=== PATIENT | male | born 1980 | race Caucasian/White ===

== ENCOUNTER 2017-07-29 19:37 | Emergency (ER) | payer BC ==
[~2017-07-29] VITALS: Ht 180.3 cm; Wt 95.3 kg
--- NOTE | 2017-07-29 20:27 | NUR ---
Pt states he had the flu last week, and went to the gym sauna to "sweat it out." Experienced syncopal episode on the shower, and suffered a laceration on the rt side of his head.
[2017-07-29] MEDS ORDERED: IV NORMAL SALINE 1000 ML BAG IV ONE (21:00)
[2017-07-29 21:16] LABS: BASOPHILS # (AUTO) 0.1 K/uL (0.0-8.0); BASOPHILS % (AUTO) 0.7 % (0.0-2.0); EOSINOPHILS # (AUTO) 0.3 K/uL (0.0-0.7); EOSINOPHILS % (AUTO) 2.6 % (0.0-7.0); HEMOGLOBIN 15.5 g/dL (12.5-16.3); LYMPHOCYTES # (AUTO) 2.1 K/uL (20.0-40.0); LYMPHOCYTES % (AUTO) 20.3 % (20.5-51.5); MEAN CORPUSCULAR HEMOGLOBIN 31.8 uug (23.8-33.4); MEAN CORPUSCULAR HGB CONC 34 g/dL (32.5-36.3); MEAN CORPUSCULAR VOLUME 92.4 fL (73.0-96.2); MONOCYTES # (AUTO) 0.8 K/uL (2.0-10.0); NEUTROPHILS # (AUTO) 7.1 K/uL (1.8-8.9); NEUTROPHILS % (AUTO) 68.4 % (38.5-71.5); PLATELET COUNT (AUTO) 176 K/uL (152-348); RED BLOOD CELL COUNT(AUTO) 4.87 MIL/uL (4.06-5.63); WHITE BLOOD COUNT (AUTO) 10.4 K/uL (3.6-10.2)
[2017-07-29 21:23] LABS: POTASSIUM 4.1 mmol/L (3.5-5.1)
[2017-07-29 21:29] LABS: BILIRUBIN,DIRECT 0.1 mg/dL (0.0-0.2); BILIRUBIN,TOTAL 0.2 mg/dL (0.2-1.0); TOTAL PROTEIN, SERUM 7.6 g/dL (6.4-8.2)
[2017-07-29] MEDS ORDERED: IBUPROFEN 800 MG TABLET PO ONE (21:30)
[2017-07-29] MEDS ORDERED: IBUPROFEN 800 MG TABLET ONE (21:38)
[2017-07-29] MEDS ORDERED: TRAMADOL HCL 50 MG TABLET PO ONE (22:30)
[2017-07-29] MEDS ORDERED: TRAMADOL HCL 50 MG TABLET ONE (22:43)
[2017-07-29] MEDS ORDERED: LIDOCAINE HCL 1% 20 ML VIAL IJ ONE (22:45)
[2017-07-29] MEDS ORDERED: NEOMY/BACITRA/POLYMYXIN B OINT UD PACKET TP ONE ×2 (23:30→23:46)
--- NOTE | 2017-07-30 | NUR ---
Patient discharged to home in stable conditon. Written and verbal after care instructions given. Patient verbalizes understanding of instructions. Steady gait, IV removed. No bleeding noted.
[2017-07-30 00:02] VITALS: BP 114/68
== END 2017-07-30 00:03 | disposition home or self-care (01) ==
LOC: ER 19:38
DX: S01.01XA Laceration without foreign body of scalp, initial encounter (principal); R55 Syncope and collapse; W18.30XA Fall on same level, unspecified, initial encounter; Y93.89 Activity, other specified; Y92.89 Other specified places as the place of occurrence of the external cause; Y99.8 Other external cause status
CPT/HCPCS: 12001; 36415; 70450; 72125; 80048; 80076; 83605; 84484; 85025; 85730; 87040 ×2; 93005; 96360; 99285; A4217; A4663; J3490; J7030 ×2; 70030-TC

== ENCOUNTER 2017-08-03 14:26 | Emergency (ER) | payer BC ==
[~2017-08-03] VITALS: Ht 180.3 cm; Wt 97.5 kg
--- NOTE | 2017-08-03 15:04 | NUR ---
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
--- NOTE | 2017-08-03 15:50 | NUR ---
flu swab collected/sent result in progress.
--- NOTE | 2017-08-03 16:35 | NUR ---
ER MD at bedside to review x-ray/influenza result condition improved d/c home with instructions after care reviewed understood left er via self alert oriented x4. no fever, no sob.
[2017-08-03 16:41] VITALS: BP 130/88
[2017-08-03] MEDS ORDERED: predniSONE 20 MG TABLET PO ONE (16:46)
[2017-08-03] MEDS ORDERED: AZITHROMYCIN 250 MG TABLET PO ONE (16:46)
[2017-08-03] MEDS ORDERED: GUAIFENESIN/CODEINE 5 ML LIQUID UDC PO ONE (17:00)
[2017-08-03] MEDS ORDERED: GUAIFENESIN/CODEINE 5 ML LIQUID UDC ONE (17:09)
[2017-08-03] MEDS ORDERED: AZITHROMYCIN 250 MG TABLET ONE (17:09)
[2017-08-03] MEDS ORDERED: predniSONE 20 MG TABLET ONE (17:10)
== END 2017-08-03 17:01 | disposition home or self-care (01) ==
LOC: ER 14:26
DX: S09.90XA Unspecified injury of head, initial encounter (principal); J40 Bronchitis, not specified as acute or chronic; X58.XXXA Exposure to other specified factors, initial encounter; Y93.89 Activity, other specified; Y92.89 Other specified places as the place of occurrence of the external cause; Y99.8 Other external cause status
CPT/HCPCS: 71045; 87400; 99285; A4663; J7512; Q0144

== ENCOUNTER 2018-03-30 22:28 | Emergency (ER) | payer BC ==
[~2018-03-30] VITALS: Ht 180.3 cm; Wt 102.1 kg
[2018-03-30] MEDS ORDERED: IBU 800 MG TABLET (22:36)
[2018-03-30] MEDS ORDERED: HYDROCODONE/APAP 5-325MG TABLET ONE (22:54)
--- NOTE | 2018-03-30 22:57 | NUR ---
Patient discharged to home in stable conditon. Written and verbal after care instructions given. Patient verbalizes understanding of instructions. pt ambulated out of ER in steady gait and states he is not driving home. All belongings with pt. vSS. NAD noted.
[2018-03-30 22:58] VITALS: BP 114/77
[2018-03-30] MEDS ORDERED: HYDROCODONE/APAP 5-325MG TABLET PO ONE (23:00)
== END 2018-03-30 23:10 | disposition home or self-care (01) ==
LOC: ER 22:31
DX: R68.84 Jaw pain (principal)
CPT/HCPCS: A4663

== ENCOUNTER 2018-05-14 10:53 | Emergency (ER) | payer BC ==
[~2018-05-14] VITALS: Ht 180.3 cm; Wt 99.8 kg
[~2018-05-14 10:53] MED LIST: IBU 800 MG TABLET
--- NOTE | 2018-05-14 11:10 | NUR ---
Dr Early at the bedside for MRSA.
[2018-05-14 11:39] LABS: BASOPHILS # (AUTO) 0.1 K/uL (0.0-8.0); BASOPHILS % (AUTO) 0.8 % (0.0-2.0); EOSINOPHILS # (AUTO) 0.2 K/uL (0.0-0.7); EOSINOPHILS % (AUTO) 3.4 % (0.0-7.0); HEMATOCRIT 46.2 % (36.7-47.1); HEMOGLOBIN 16.2 g/dL (12.5-16.3); LYMPHOCYTES # (AUTO) 1.6 K/uL (20.0-40.0); MEAN CORPUSCULAR HEMOGLOBIN 31.7 uug (23.8-33.4); MEAN CORPUSCULAR HGB CONC 35 g/dL (32.5-36.3); MEAN CORPUSCULAR VOLUME 90.4 fL (73.0-96.2); MONOCYTES # (AUTO) 0.4 K/uL (2.0-10.0); MONOCYTES % (AUTO) 7.1 % (0.0-11.0); NEUTROPHILS % (AUTO) 63.7 % (38.5-71.5); PLATELET COUNT (AUTO) 216 K/uL (152-348); WHITE BLOOD COUNT (AUTO) 6.2 K/uL (3.6-10.2)
[2018-05-14 11:44] LABS: CREATININE 1.1 mg/dL (0.6-1.3); POTASSIUM 5.1 mmol/L (3.5-5.1)
[2018-05-14 11:50] LABS: BILIRUBIN,DIRECT 0.1 mg/dL (0.0-0.2); BILIRUBIN,TOTAL 0.3 mg/dL (0.2-1.0); TOTAL PROTEIN, SERUM 8.1 g/dL (6.4-8.2)
[2018-05-14] MEDS ORDERED: IV NORMAL SALINE 1000 ML BAG IV ONE (13:00)
[2018-05-14] MEDS ORDERED: SWABABLE VALVE TRANSFER SET EA MC ONE (13:03)
[2018-05-14] MEDS ORDERED: IOHEXOL 350 100 ML INFUS..BTL ONE (13:04)
[2018-05-14] MEDS ORDERED: IV NORMAL SALINE 250 ML IV ONE (13:04)
--- NOTE | 2018-05-14 13:13 | NUR ---
20G PLACED, CONSENT SIGNED, PT TO CT SCAN
--- NOTE | 2018-05-14 14:16 | NUR ---
IV removed. Catheter intact and site benign. Pressure and 4x4 gauze applied to site. No bleeding noted.
--- NOTE | 2018-05-14 14:16 | NUR ---
Patient discharged to home in stable conditon. Written and verbal after care instructions given. Patient verbalizes understanding of instructions.
[2018-05-14 14:17] VITALS: BP 130/81
== END 2018-05-14 14:19 | disposition home or self-care (01) ==
LOC: ER 10:53
DX: J20.9 Acute bronchitis, unspecified (principal); F15.10 Other stimulant abuse, uncomplicated
CPT/HCPCS: 36415; 71045; 71275; 80048; 80076; 84484; 85025; 85379; 87040 ×2; 93005; 99285; Q9967; 70030-TC; A4663; J7030; J7050

== ENCOUNTER 2018-07-29 19:44 | Emergency (ER) | payer BC ==
[~2018-07-29] VITALS: Ht 180.3 cm; Wt 97.1 kg
--- NOTE | 2018-07-29 20:07 | NUR ---
Pt ambulates to ER with c/o coughing up green phlegm x 2 weeks & anxiety x 2 weeks. Pt states he has been under a lot of stress x 1.5 weeks. Pt appears in no apparent distress. AAOX4. SA02 100% room air.
[2018-07-29 20:43] LABS: BASOPHILS # (AUTO) 0.1 K/uL (0.0-8.0); BASOPHILS % (AUTO) 1.1 % (0.0-2.0); EOSINOPHILS # (AUTO) 0.1 K/uL (0.0-0.7); EOSINOPHILS % (AUTO) 1.3 % (0.0-7.0); HEMATOCRIT 41.2 % (36.7-47.1); HEMOGLOBIN 14.4 g/dL (12.5-16.3); LYMPHOCYTES # (AUTO) 1.9 K/uL (20.0-40.0); LYMPHOCYTES % (AUTO) 27.5 % (20.5-51.5); MEAN CORPUSCULAR HEMOGLOBIN 32.1 uug (23.8-33.4); MEAN CORPUSCULAR HGB CONC 35 g/dL (32.5-36.3); MEAN CORPUSCULAR VOLUME 91.5 fL (73.0-96.2); MONOCYTES # (AUTO) 0.4 K/uL (2.0-10.0); MONOCYTES % (AUTO) 6.1 % (0.0-11.0); NEUTROPHILS # (AUTO) 4.5 K/uL (1.8-8.9); PLATELET COUNT (AUTO) 191 K/uL (152-348); WHITE BLOOD COUNT (AUTO) 7.1 K/uL (3.6-10.2)
[2018-07-29 20:50] LABS: CREATININE 1.1 mg/dL (0.6-1.3); POTASSIUM 3.7 mmol/L (3.5-5.1)
[2018-07-29] MEDS ORDERED: LORAZEPAM 1 MG TABLET ONE (20:54)
[2018-07-29] MEDS: LORAZEPAM 0.5 MG TABLET PO ONE (20:55)
[2018-07-29 20:56] LABS: BILIRUBIN,DIRECT 0.1 mg/dL (0.0-0.2); BILIRUBIN,TOTAL 0.5 mg/dL (0.2-1.0); TOTAL PROTEIN, SERUM 7.2 g/dL (6.4-8.2)
--- NOTE | 2018-07-29 21:22 | NUR ---
Patient discharged to home in stable conditon. Written and verbal after care instructions given. Patient verbalizes understanding of instructions. Pt ambulated out of ER in steady gait. Pt states he will not drive home. All belongings with pt. VSS. NAD noted.
[2018-07-29 21:32] VITALS: BP 112/74
== END 2018-07-29 21:32 | disposition home or self-care (01) ==
LOC: ER 19:47
DX: F41.9 Anxiety disorder, unspecified (principal); F15.10 Other stimulant abuse, uncomplicated; Z79.1 Long term (current) use of non-steroidal anti-inflammatories (NSAID)
CPT/HCPCS: 36415; 70030-TC; 71045; 85025; 93005; A4663

== ENCOUNTER 2020-07-02 17:59 | Emergency (ER) | payer BC ==
[~2020-07-02] VITALS: Ht 180.3 cm; Wt 97.1 kg
[2020-07-02] MEDS ORDERED: HYDROMORPHONE 1 MG/1 ML DISP.SYRIN IM ONE (19:45)
[2020-07-02] MEDS ORDERED: ONDANSETRON 4 MG/2 ML VIAL IM ONE (19:45)
[2020-07-02] MEDS ORDERED: HYDROMORPHONE 2 MG/1 ML DISP.SYRIN ONE (20:04)
[2020-07-02] MEDS ORDERED: ONDANSETRON 4 MG/2 ML VIAL ONE (20:05)
--- NOTE | 2020-07-02 20:34 | NUR ---
Patient discharged to home in stable condition. Written and verbal after care instructions given. Patient verbalizes understanding of instructions. Stressed follow up or return to ER for worsening s/s.
[2020-07-02 22:32] VITALS: BP 106/75
== END 2020-07-02 20:34 | disposition home or self-care (01) ==
LOC: ER 17:59
DX: S16.1XXA Strain of muscle, fascia and tendon at neck level, initial encounter (principal); X50.9XXA Other and unspecified overexertion or strenuous movements or postures, initial encounter; Y93.73 Activity, racquet and hand sports; Y92.89 Other specified places as the place of occurrence of the external cause
CPT/HCPCS: 72040; 72072; 96372 ×2; 99284; J1170; J2405; A4663

== ENCOUNTER 2023-10-23 14:12 | Emergency (ER) | payer BC ==
[~2023-10-23] VITALS: Ht 180.3 cm; Wt 94.8 kg
[2023-10-23 14:17] VITALS: O2SAT 100
[2023-10-23] MEDS ORDERED: HYDROMORPHONE 2 MG/1 ML DISP.SYRIN ONE (15:21)
[2023-10-23] MEDS ORDERED: ONDANSETRON ODT 4 MG TAB.RAPDIS ONE (15:21)
[2023-10-23] MEDS: ONDANSETRON ODT 4 MG TAB.RAPDIS SL ONE (15:30)
[2023-10-23] MEDS: ONDANSETRON HCL 4 MG TABLET PO ONE (15:34)
[2023-10-23] MEDS: HYDROMORPHONE 1 MG/1 ML DISP.SYRIN IM ONE (15:34)
== END 2023-10-23 15:44 | disposition home or self-care (01) ==
LOC: ER 14:12
DX: M62.838 Other muscle spasm (principal); Z79.899 Other long term (current) drug therapy
CPT/HCPCS: 99283; 96372; J1170; A4606; A4663; Q0162

== ENCOUNTER 2024-04-18 17:50 | Emergency (ER) | payer BC ==
[~2024-04-18] VITALS: Ht 180.3 cm; Wt 88.5 kg
[2024-04-18] MEDS: IV NORMAL SALINE 1000 ML BAG IV ONE (19:06)
[2024-04-18 19:38] LABS: BASOPHILS # (AUTO) 0.1 K/UL (0.0-0.2); BASOPHILS % (AUTO) 0.8 % (0.0-2.0); DIFFERENTIAL COMMENT 1; EOSINOPHILS # (AUTO) 0.3 K/uL (0.0-0.7); EOSINOPHILS % (AUTO) 3.9 % (0.0-7.0); HEMATOCRIT 43.1 % (36.7-47.1); HEMOGLOBIN 14.4 g/dL (12.5-16.3); LYMPHOCYTES # (AUTO) 1.5 K/uL (0.8-4.8); LYMPHOCYTES % (AUTO) 18.5 % (20.5-51.5); MEAN CORPUSCULAR HEMOGLOBIN 31.1 uug (23.8-33.4); MEAN CORPUSCULAR HGB CONC 34 g/dL (32.5-36.3); MEAN CORPUSCULAR VOLUME 92.9 fL (73.0-96.2); MONOCYTES # (AUTO) 0.8 K/uL (0.1-1.30); MONOCYTES % (AUTO) 9.4 % (0.0-11.0); NEUTROPHILS # (AUTO) 5.6 K/uL (1.8-8.9); NEUTROPHILS % (AUTO) 67.4 % (38.5-71.5); PLATELET COUNT (AUTO) 316 K/uL (152-348); RED BLOOD CELL COUNT(AUTO) 4.64 MIL/uL (4.06-5.63); WHITE BLOOD COUNT (AUTO) 8.3 K/uL (3.6-10.2)
[2024-04-18 19:39] LABS: CALCIUM 8.8 mg/dL (8.5-10.1); CARBON DIOXIDE 24 mmol/L (21-32); CHLORIDE 104 mmol/L (98-107); CREATININE 0.9 mg/dL (0.6-1.3); GLUCOSE 80 mg/dL (74-106); POTASSIUM 4.1 mmol/L (3.5-5.1); SODIUM SERUM 138 mmol/L (136-145); UREA NITROGEN, BLOOD 13 mg/dL (7-18)
[2024-04-18 19:51] LABS: ALANINE AMINOTRANSFERASE 23 U/L (16-63); ALBUMIN 3.4 g/dL (3.4-5.0); ALKALINE PHOSPHATASE 63 U/L (50-136); ASPARTATE AMINOTRANSFERASE 12 U/L (15-37); BILIRUBIN,DIRECT 0.1 mg/dL (0.0-0.2); BILIRUBIN,TOTAL 0.3 mg/dL (0.2-1.0); NT-PRO BNP 15 pg/mL (0-125); TOTAL PROTEIN, SERUM 7.3 g/dL (6.4-8.2)
[2024-04-18] MEDS: HALOPERIDOL LACTATE 5 MG/1 ML VIAL IV ONE (20:07)
[2024-04-18] MEDS ORDERED: LORAZEPAM 2 MG/1 ML VIAL ONE (20:08)
[2024-04-18] MEDS: LORAZEPAM 2 MG/1 ML VIAL IV ONE (20:09)
[2024-04-18 22:43] VITALS: BP 118/75; TEMP 97.9; O2SAT 97
== END 2024-04-18 22:40 | disposition home or self-care (01) ==
LOC: ER 17:53
DX: R07.89 Other chest pain (principal); Z79.899 Other long term (current) drug therapy; Z88.7 Allergy status to serum and vaccine
CPT/HCPCS: 99285; 96374; 71045; 96361; 96375; 80076; 80048; 83880; 80178; 85025; 84484 ×2; 36415; 93005; J1630; J2060; J7040; 70030-TC; A4606; A4663